=== PATIENT | male | born 1960 ===

== ENCOUNTER 2019-02-03 16:27 | Emergency (ER) | payer SELFPAY ==
[2019-02-03 16:43] VITALS: BP 152/91
--- NOTE | 2019-02-03 19:29 | Event Note ---
ED Screening Note ED Screening Note: bilateral leg pain that began a month and a half ago has not seen anyone for it states he has an appointment next month with pain specialist no fall or injury no numbness states that last night he had leg weakness, states it was too uncomfortable to walk he walks with a cane states that he has intermittent swelling in the right ankle, no swelling currently This initial assessment/diagnostic orders/clinical plan/treatment(s) is/are subject to change based on patients health status, clinical progression and re- assessment by fellow clinical providers in the ED. Further treatment and workup at subsequent clinical providers discretion. Patient/guardian urged not to elope from the ED as their condition may be serious if not clinically assessed and managed.
== END 2019-02-04 04:30 | disposition left against medical advice (07) ==
LOC: ED 16:27
DX: M25.571 Pain in right ankle and joints of right foot (principal); Z53.21 Procedure and treatment not carried out due to patient leaving prior to being seen by health care provider